=== PATIENT | male | born 2000 | race Two or more races ===

== ENCOUNTER 2021-11-08 04:32 | Emergency (ER) | payer OTHER ==
[~2021-11-08] VITALS: Ht 180.3 cm; Wt 90.7 kg
== END 2021-11-08 06:31 | disposition home or self-care (01) ==
LOC: ER 04:32 → EMR PED 04:32 → ER 05:11
DX: S00.93XA Contusion of unspecified part of head, initial encounter (principal); Y08.89XA Assault by other specified means, initial encounter; Y93.89 Activity, other specified; Y92.89 Other specified places as the place of occurrence of the external cause; Y99.9 Unspecified external cause status